=== PATIENT | male | born 1995 | race Two or more races ===

== ENCOUNTER → 2024-10-24 | Emergency (ER) | payer BC, OTHER ==
[~2024-10-24] VITALS: Ht 180.3 cm; Wt 75.5 kg
[2024-10-24 20:27] VITALS: BP 149/102; PULSE 82; RESP 16; TEMP 98.6; O2SAT 100
== END | disposition left against medical advice (07) ==
LOC: ER 20:26
DX: R51.9 Headache, unspecified (principal); Z53.21 Procedure and treatment not carried out due to patient leaving prior to being seen by health care provider